=== PATIENT | male | born 1970 | race Caucasian/White ===

== ENCOUNTER 2019-11-10 22:33 | Inpatient (IN) | payer BC ==
[~2019-11-10] VITALS: Ht 185.4 cm; Wt 104.1 kg
--- NOTE | 2019-11-10 22:46 | NUR ---
PROMPTED PATIENT FOR URINE AT THIS TIME. PER PATIENT UNABLE TO PROVIDE SAMPLE AT THIS TIME.
[2019-11-10 22:50] VITALS: BP 148/87
--- NOTE | 2019-11-10 23:57 | NUR ---
PATIENT REFUSING PAIN MEDICATION AND NAUSEA MEDICATION AT THIS TIME, ALBERTA MARTINES AWARE.
[2019-11-11] VITALS (7 sets, daily range): BP systolic 97–154; BP diastolic 49–92
[2019-11-11] LABS: BASO # 0.1 10*3/uL (0.0-0.1); BASO % 0.3 % (0.0-1.0); EOS # 0.2 10*3/uL (0.0-0.4); EOS % 1.5 % (1.0-4.0); HEMATOCRIT 38.7 % (42.0-52.0); LYMPH # 2.2 10*3/uL (1.3-4.4); MEAN CORPUSCULAR HGB 31.2 pg (27.0-31.0); MEAN CORPUSCULAR HGB CONC 34.6 g/dl (33.0-37.0); MEAN PLATELET VOLUME 11.2 fl (9.6-12.3); MONO # 1.2 10*3/uL (0.1-1.0); MONO % 7.3 % (3.0-9.0); NEUT # 12.2 10*3/uL (2.3-7.9); NEUT % 76.3 % (47.0-73.0); PLATELET COUNT AUTOMATED 214 10*3/uL (130-400); RED CELL DISTRI WIDTH 12.2 % (0-14.5)
[2019-11-11 00:15] LABS: ALBUMIN 3.1 gm/dl (3.1-4.5); ALKALINE PHOSPHATASE 66 U/L (45-117); BUN 10 mg/dl (7-24); CHLORIDE 101 mmol/L (98-107); CREATININE 0.98 mg/dL (0.70-1.30); LIPASE 59 U/L (73-393); SGOT/AST 16 IU/L (3-35); SGPT/ALT 26 U/L (12-78); SODIUM 134 mmol/L (136-145); TOTAL PROTEIN 7.8 gm/dL (6.4-8.2)
[2019-11-11] MEDS ORDERED: ALLOPURINOL100 MG PO (02:43)
[2019-11-11] MEDS ORDERED: AUGMENTIN 875875 MG PO (02:43)
[2019-11-11] MEDS ORDERED: AMLODIPINE BESY10 MG PO (02:43)
[2019-11-11] MEDS ORDERED: HYDROCHLOROTHIA25 M1 PO (02:44)
[2019-11-11] MEDS ORDERED: ATENOLOL50 M1 PO (02:44)
[2019-11-11] MEDS ORDERED: IBU800 M1 PO (02:45)
--- NOTE | 2019-11-11 02:45 | NUR ---
MED REC UPDATED VIA CLAIM HISTORY.
--- NOTE | 2019-11-11 02:49 | NUR ---
NOTIIFIED OF MED REC REVIEW.
--- NOTE | 2019-11-11 03:09 | NUR ---
A 49, admitted to , under the services of TRENT Carney DO with a diagnosis of PERFORATED COLON. Chief complaint is ABDOMINAL PAIN. Patient arrived via ambulatory from ER. Monitor applied. Initial assessment completed. Vital signs taken and recorded. TRENT CARNEY DO notified of admission to the unit. Orders received. See assessment for past medical history, medications and allergies. Patient and/or family oriented to unit. [facility] visitation policy reviewed. Clothing/patient valuable form completed. VAZQUEZ MOLINA
[2019-11-11] MEDS ORDERED: FLONASE ALLERG9.9 ML NAS (03:26)
[2019-11-11] MEDS ORDERED: ALLEGRA-D 24 H1 EACH PO (03:26)
[2019-11-11] MEDS ORDERED: XANAX0.5 MG PO (03:33)
[2019-11-11 06:29] LABS: BASO % 0.3 % (0.0-1.0); EOS # 0.1 10*3/uL (0.0-0.4); HEMATOCRIT 36.9 % (42.0-52.0); LYMPH # 1.8 10*3/uL (1.3-4.4); LYMPH % 13.3 % (27.0-41.0); MEAN CELL VOLUME 90.4 fl (80.0-94.0); MEAN CORPUSCULAR HGB 30.9 pg (27.0-31.0); MEAN CORPUSCULAR HGB CONC 34.1 g/dl (33.0-37.0); MEAN PLATELET VOLUME 11.5 fl (9.6-12.3); MONO % 7.2 % (3.0-9.0); NEUT # 10.4 10*3/uL (2.3-7.9); NEUT % 77.5 % (47.0-73.0); PLATELET COUNT AUTOMATED 211 10*3/uL (130-400); RED BLOOD COUNT 4.08 10*6/uL (4.50-5.90); RED CELL DISTRI WIDTH 12.3 % (0-14.5); WHITE BLOOD COUNT 13.4 10*3/uL (4.8-10.8)
[2019-11-11 07:02] LABS: BUN 8 mg/dl (7-24); CHLORIDE 104 mmol/L (98-107); CHOLESTEROL 149 mg/dL (<200); CREATININE 0.89 mg/dL (0.70-1.30); HDL CHOLESTEROL 24 mg/dl (40-60); LDL CHOLESTEROL 103 mg/dL (9-159); POTASSIUM 3.2 mmol/L (3.5-5.1); SODIUM 136 mmol/L (136-145); TRIGLYCERIDES 112 mg/dl (<150); VLDL CHOLESTEROL 22 mg/dL (6-40)
--- NOTE | 2019-11-11 07:30 | NUR ---
IN PT ROOM AT THIS TIME. PT STATES THAT HIS ABDOMEN IS SEWER HAND BUT FEELS BETTER BECAUSE DR FRANKLIN WAS JUST IN THE ROOM AND STATES HE DOES NOT THINK SURGERY WILL BE NEEDED. CALL LIGHT WITHIN REACH, WILL CONTINUE TO MONITOR
--- NOTE | 2019-11-11 08:15 | NUR ---
DR FATIMA IN TO SEE PATIENT
--- NOTE | 2019-11-11 08:44 | NUR ---
DR NORIEGA UPDATED ON PT HOME MEDS NEEDING TO BE CONTINUED
--- NOTE | 2019-11-11 09:00 | NUR ---
Inspector Shells in to talk to patient. Patient states lives at home with . There are no steps in the home. Physician: rima castanon Pharmacy: [facility] health services: none Patient's level of ADLs: INDEPENDENT Patient has working utilities: all working DME: none Follow-up physician's appointment after d/c: will be made by hospitalist nurse director upon discharge Does patient want to access PORTAL?: no Discharge plan discussed with patient, he lives at home, is independent in adls and ambulation, works, drives, he states he will return home when medically stable and denies any home needs, case management will follow. AIMEE KOCH
--- NOTE | 2019-11-11 17:16 | NUR ---
SPOKE TO DR NORIEGA REGARDING PT BLOOD PRESSURE. HE STATES TO KEEP MONITORING HIM AND IF HE IS SYMPTOMATIC THEN TO GIVE HIM A CALL BACK
--- NOTE | 2019-11-11 20:23 | NUR ---
PT. RESTING IN BED. IVF CONTINUE ORDERED VIA RH, SITE ASYMPT. LUNGS DIMINISHED BILAT, PULSE OX97% ON RA. ABDOMEN SOFTLY DISTENDED AND NORMO, OBESE. 1-2+BLE EDEMA TO FEET NOTED. PT. DENIES ABD TENDERNESS OR PAIN. STEF BRASWELL RN
[2019-11-12] VITALS: BP 138/74
[2019-11-12 07:02] LABS: BUN 9 mg/dl (7-24); CHLORIDE 109 mmol/L (98-107); CREATININE 0.94 mg/dL (0.70-1.30); POTASSIUM 3.4 mmol/L (3.5-5.1); SODIUM 140 mmol/L (136-145)
[2019-11-12 07:04] LABS: BASO # 0.1 10*3/uL (0.0-0.1); BASO % 0.6 % (0.0-1.0); EOS # 0.4 10*3/uL (0.0-0.4); EOS % 3.9 % (1.0-4.0); HEMATOCRIT 38.2 % (42.0-52.0); LYMPH # 1.9 10*3/uL (1.3-4.4); LYMPH % 17.2 % (27.0-41.0); MEAN CELL VOLUME 92.5 fl (80.0-94.0); MEAN CORPUSCULAR HGB 30.3 pg (27.0-31.0); MEAN CORPUSCULAR HGB CONC 32.7 g/dl (33.0-37.0); MEAN PLATELET VOLUME 11.1 fl (9.6-12.3); MONO # 0.9 10*3/uL (0.1-1.0); MONO % 8.1 % (3.0-9.0); NEUT # 7.5 10*3/uL (2.3-7.9); NEUT % 69.6 % (47.0-73.0); PLATELET COUNT AUTOMATED 242 10*3/uL (130-400); RED BLOOD COUNT 4.13 10*6/uL (4.50-5.90); RED CELL DISTRI WIDTH 12.4 % (0-14.5); WHITE BLOOD COUNT 10.8 10*3/uL (4.8-10.8)
[2019-11-12 08:00] VITALS: BP 130/74
--- NOTE | 2019-11-12 08:15 | NUR ---
IN PT ROOM TO COMPLETE ASSESSMENT. WENT OVER DIET CHANGE WITH PATIENT AND PLANS FOR DECREASING FLUIDS. DC ACCOUNTS PAYABLE COORDINATOR AT THIS TIME. PT VOICES NO COMPLAINTS. CALL LIGHT WITHIN REACH, WILL CONTINUE TO MONITR. EXPLAINED HOW TO USE THE PHONE TO ORDER BREAKFAST
--- NOTE | 2019-11-12 09:00 | NUR ---
case management visits with patient, he will return home when medically stable and denies any home needs
[2019-11-12 12:00] VITALS: BP 138/72
[2019-11-12 16:00] VITALS: BP 117/71
--- NOTE | 2019-11-12 19:32 | NUR ---
Shift chart check completed.
[2019-11-12 20:00] VITALS: BP 149/77
[2019-11-13] VITALS: BP 130/81
[2019-11-13 06:07] LABS: BASO % 0.3 % (0.0-1.0); EOS # 0.5 10*3/uL (0.0-0.4); EOS % 3.7 % (1.0-4.0); HEMATOCRIT 37.8 % (42.0-52.0); LYMPH # 1.9 10*3/uL (1.3-4.4); LYMPH % 15.3 % (27.0-41.0); MEAN CELL VOLUME 92.2 fl (80.0-94.0); MEAN CORPUSCULAR HGB 30.2 pg (27.0-31.0); MEAN CORPUSCULAR HGB CONC 32.8 g/dl (33.0-37.0); MEAN PLATELET VOLUME 10.6 fl (9.6-12.3); MONO # 0.9 10*3/uL (0.1-1.0); MONO % 7.1 % (3.0-9.0); NEUT # 9.2 10*3/uL (2.3-7.9); PLATELET COUNT AUTOMATED 259 10*3/uL (130-400); RED CELL DISTRI WIDTH 12.6 % (0-14.5); WHITE BLOOD COUNT 12.5 10*3/uL (4.8-10.8)
[2019-11-13 06:22] LABS: BUN 6 mg/dl (7-24); CHLORIDE 107 mmol/L (98-107); CREATININE 0.95 mg/dL (0.70-1.30); POTASSIUM 3.4 mmol/L (3.5-5.1); SODIUM 138 mmol/L (136-145)
[2019-11-13 08:00] VITALS: BP 130/82
--- NOTE | 2019-11-13 08:34 | NUR ---
PATIENT SITTING UP IN CHAIR. NO DISTRESS NOTED. RESPIRATIONS EASY, REGULAR. DIET ADVANCED TO LOW FIBER. WILL SEE HOW PATIENT TOLERATES BREAKFAST. PT DENIES ANY ABD PAIN/DISCOMFORT. IVF MAINTAINED. VSS. CALL LIGHT WITHIN REACH.
--- NOTE | 2019-11-13 09:00 | NUR ---
case management visits with patient, he states he will return home when medically stable, patient is hopeful discharge will be within next couple of days, case management will follow
[2019-11-13 12:00] VITALS: BP 129/82
--- NOTE | 2019-11-13 12:00 | NUR ---
PT TOLERATING DIET WITHOUT ANY DIFFICULTY. NO DISTRESS NOTED. WILL CONTINUE TO MONITOR. VSS. CALL LIGHT WITHIN REACH.
[2019-11-13 16:00] VITALS: BP 129/76
[2019-11-13 20:00] VITALS: BP 129/69
--- NOTE | 2019-11-13 20:00 | NUR ---
UP IN ROOM. VOICES NO C/O AT THIS TIME. CALL LIGHT WITHIN REACH.
[2019-11-14] VITALS: BP 114/59
--- NOTE | 2019-11-14 | NUR ---
RESTING IN BED; VOICES NO C/O. CALL LIGHT WITHIN REACH.
--- NOTE | 2019-11-14 06:00 | NUR ---
VOICES NO C/O; CALL LIGHT WITHIN REACH.
[2019-11-14 06:36] LABS: BASO # 0.1 10*3/uL (0.0-0.1); BASO % 0.4 % (0.0-1.0); EOS # 0.5 10*3/uL (0.0-0.4); EOS % 3.2 % (1.0-4.0); HEMATOCRIT 40.4 % (42.0-52.0); LYMPH # 2.2 10*3/uL (1.3-4.4); LYMPH % 15.7 % (27.0-41.0); MEAN CELL VOLUME 91.6 fl (80.0-94.0); MEAN CORPUSCULAR HGB 30.4 pg (27.0-31.0); MEAN CORPUSCULAR HGB CONC 33.2 g/dl (33.0-37.0); MEAN PLATELET VOLUME 10.5 fl (9.6-12.3); MONO # 0.9 10*3/uL (0.1-1.0); MONO % 6.5 % (3.0-9.0); NEUT # 10.4 10*3/uL (2.3-7.9); NEUT % 73.3 % (47.0-73.0); PLATELET COUNT AUTOMATED 302 10*3/uL (130-400); RED BLOOD COUNT 4.41 10*6/uL (4.50-5.90); RED CELL DISTRI WIDTH 12.5 % (0-14.5); WHITE BLOOD COUNT 14.2 10*3/uL (4.8-10.8)
[2019-11-14 07:04] LABS: BUN 7 mg/dl (7-24); CHLORIDE 105 mmol/L (98-107); CREATININE 1.09 mg/dL (0.70-1.30); POTASSIUM 3.3 mmol/L (3.5-5.1); SODIUM 138 mmol/L (136-145)
--- NOTE | 2019-11-14 07:25 | NUR ---
CT PREP INITIATED AT THIS TIME PER ORDER.
--- NOTE | 2019-11-14 07:29 | NUR ---
IN TO SEE PATIENT THIS AM.
[2019-11-14 08:00] VITALS: BP 150/88
--- NOTE | 2019-11-14 09:00 | NUR ---
case management visits with patient, patient having more testing today. he will return home with no needs when discharged, case management will follow
--- NOTE | 2019-11-14 09:36 | NUR ---
PATIENT TAKEN DOWN FOR SCHEDULED CT.
[2019-11-14 12:00] VITALS: BP 101/68
--- NOTE | 2019-11-14 12:41 | NUR ---
THIS NURSE SPOKE WITH REGARDING CRITICAL CT RESULTS. PT TO BE TRANSFERRED PER . AND AWARE. OKAY FOR PATIENT TO HAVE HIS SCHEDULED PO MEDS WITH SIP OF WATER. PT TO REMAIN NPO.
--- NOTE | 2019-11-14 14:30 | NUR ---
IN TO SEE PATIENT.
[2019-11-14 16:00] VITALS: BP 120/55
--- NOTE | 2019-11-14 16:24 | NUR ---
TRANSFER PACKET COMPLETE AND SIGNED AT THIS TIME. AWAITING AMBULANCE PICK-UP.
--- NOTE | 2019-11-14 16:47 | NUR ---
AMBULANCE HERE TO TRANSPORT PATIENT TO .' PER ORDER.
--- NOTE | 2019-11-14 16:59 | NUR ---
NURSE TO NURSE REPORT GIVEN AT THIS TIME.
== END 2019-11-14 16:47 | disposition short-term general hospital (02) | DRG 872 ==
LOC: ED 22:33 → 4E 11-11 01:50
PROVIDERS: Internal Medicine; Physician Assistant; Student in an Organized Health Care Education/Training Program; ADMIT Internal Medicine
DX: A41.9 Sepsis, unspecified organism (principal); E44.1 Mild protein-calorie malnutrition; K57.20 Diverticulitis of large intestine with perforation and abscess without bleeding; E87.1 Hypo-osmolality and hyponatremia; K66.8 Other specified disorders of peritoneum; D64.9 Anemia, unspecified; E87.6 Hypokalemia; R73.9 Hyperglycemia, unspecified; E83.39 Other disorders of phosphorus metabolism; E83.41 Hypermagnesemia; R73.03 Prediabetes; I10 Essential (primary) hypertension; M10.9 Gout, unspecified; Z87.891 Personal history of nicotine dependence; Z82.49 Family history of ischemic heart disease and other diseases of the circulatory system; Z82.3 Family history of stroke; Z80.1 Family history of malignant neoplasm of trachea, bronchus and lung; Z79.899 Other long term (current) drug therapy; Z68.30 Body mass index [BMI] 30.0-30.9, adult

== ENCOUNTER → 2019-12-16 | Outpatient (CLI) | payer BC ==
[~2019-12-16] MED LIST: ALLEGRA-D 24 H1 EACH PO; ALLOPURINOL100 MG PO; AMLODIPINE BESY10 MG PO; ATENOLOL50 M1 PO; AUGMENTIN 875875 MG PO; FLONASE ALLERG9.9 ML NAS; HYDROCHLOROTHIA25 M1 PO; IBU800 M1 PO; XANAX0.5 MG PO
[2019-12-16 13:25] LABS: BASO # 0.1 10*3/uL (0.0-0.1); BASO % 0.4 % (0.0-1.0); EOS # 0.1 10*3/uL (0.0-0.4); EOS % 0.4 % (1.0-4.0); HEMATOCRIT 40.4 % (42.0-52.0); LYMPH # 2.1 10*3/uL (1.3-4.4); LYMPH % 14.9 % (27.0-41.0); MEAN CELL VOLUME 90.6 fl (80.0-94.0); MEAN CORPUSCULAR HGB 30.3 pg (27.0-31.0); MEAN CORPUSCULAR HGB CONC 33.4 g/dl (33.0-37.0); MEAN PLATELET VOLUME 11.7 fl (9.6-12.3); MONO % 7.1 % (3.0-9.0); NEUT # 10.6 10*3/uL (2.3-7.9); NEUT % 76.8 % (47.0-73.0); PLATELET COUNT AUTOMATED 224 10*3/uL (130-400); RED BLOOD COUNT 4.46 10*6/uL (4.50-5.90); RED CELL DISTRI WIDTH 13.6 % (0-14.5); WHITE BLOOD COUNT 13.8 10*3/uL (4.8-10.8)
[2019-12-16 13:37] LABS: ALBUMIN 4.3 gm/dl (3.1-4.5); ALKALINE PHOSPHATASE 60 U/L (45-117); BILIRUBIN, DIRECT 0.2 mg/dL (0.0-0.2); BUN 14 mg/dl (7-24); CHLORIDE 101 mmol/L (98-107); POTASSIUM 3.9 mmol/L (3.5-5.1); SGOT/AST 14 IU/L (3-35); SGPT/ALT 30 U/L (12-78); SODIUM 134 mmol/L (136-145); TOTAL PROTEIN 8.5 gm/dL (6.4-8.2)
== END | disposition home or self-care (01) ==
LOC: LAB 12:39
PROVIDERS: Specialist
DX: K57.20 Diverticulitis of large intestine with perforation and abscess without bleeding (principal); R50.9 Fever, unspecified

== ENCOUNTER → 2021-09-20 | Outpatient (CLI) | payer BC | END | disposition home or self-care (01) | LOC: CARD 09:30 | PROVIDERS: ATTEND Physician Assistant | DX: I08.0 Rheumatic disorders of both mitral and aortic valves (principal) ==

== ENCOUNTER 2024-07-04 09:00 | Inpatient (IN) | payer OTHER ==
[~2024-07-04] VITALS: Ht 185.4 cm; Wt 141.1 kg
[2024-07-04 09:05] VITALS: BP 135/88
[2024-07-04] MEDS ORDERED: MOUNJARO7.5 MG/0.1 SQ (09:09)
[2024-07-04] MEDS ORDERED: SODIUM CHLORIDE 0.9% 500 ML IV ONE (09:40)
[2024-07-04] MEDS ORDERED: IOHEXOL 300 MG/ML 100 ML VIAL IV ONE (09:40)
[2024-07-04 10:09] LABS: BASO # 0.1 10*3/uL (0.0-0.1); BASO % 0.3 % (0.0-1.0); HEMATOCRIT 43.5 % (42.0-52.0); MEAN CELL VOLUME 89.1 fl (80.0-94.0); MEAN CORPUSCULAR HGB 30.9 pg (27.0-31.0); MEAN CORPUSCULAR HGB CONC 34.7 g/dl (33.0-37.0); MEAN PLATELET VOLUME 10.7 fl (9.6-12.3); MONO # 1.5 10*3/uL (0.1-1.0); MONO % 6.5 % (3.0-9.0); NEUT # 19.9 10*3/uL (2.3-7.9); NEUT % 87.1 % (47.0-73.0); PLATELET COUNT AUTOMATED 219 10*3/uL (130-400); RED BLOOD COUNT 4.88 10*6/uL (4.50-5.90); RED CELL DISTRI WIDTH 13.2 % (0-14.5); WHITE BLOOD COUNT 22.8 10*3/uL (4.8-10.8)
[2024-07-04] MEDS ORDERED: MORPHINE Sulfate 2 MG/ML SYR IV ONE ×2 (10:25→17:40)
[2024-07-04] MEDS ORDERED: Ondansetron Hydrochloride 4 MG/2 ML VIAL IV ONE (10:35)
[2024-07-04] MEDS ORDERED: SODIUM CHLORIDE 0.9% 1,000 ML IV SCH ×2 (10:35→12:35)
[2024-07-04] MEDS ORDERED: Piperacillin Sodium/Tazobact 50 ML IV ONE (10:50)
[2024-07-04 11:30] LABS: ALKALINE PHOSPHATASE 49 U/L (46-116); BUN 15 mg/dl (9-23); CHLORIDE 104 mmol/L (98-107); LIPASE 38 U/L (12-53); POTASSIUM 3.8 mmol/L (3.4-5.1); SGPT/ALT 17 U/L (5-49); TOTAL PROTEIN 7.2 gm/dL (6.0-8.0)
[2024-07-04] MEDS ORDERED: HYDROmorphONE Hydrochloride 0.5 MG/0.5 ML SYRINGE IV ONE ×2 (11:30→12:35)
[2024-07-04 12:07] VITALS: BP 137/79
[2024-07-04] MEDS ORDERED: MORPHINE Sulfate 2 MG/ML SYR IV PRN ×2 (12:40→17:36)
[2024-07-04] MEDS ORDERED: ACETAMINOPHEN 650 MG SUPP R PRN (12:40)
[2024-07-04] MEDS ORDERED: fentaNYL CITRATE 100 MCG/2 ML VIAL IV ONE (12:50)
[2024-07-04 13:40] VITALS: BP 117/70
[2024-07-04] MEDS ORDERED: ACETAMINOPHEN 325 MG TAB PO PRN (14:20)
[2024-07-04] MEDS ORDERED: METFORMIN HYDR500 MG PO (14:57)
[2024-07-04] MEDS ORDERED: ALPRAZolam 0.5 MG TAB PO PRN (15:35)
[2024-07-04 16:00] VITALS: BP 114/67
[2024-07-04] MEDS ORDERED: Piperacillin Sodium/Tazobact 50 ML IV SCH (18:00)
[2024-07-04] MEDS ORDERED: HYDROmorphONE Hydrochloride 1 MG/ML SYR IV ONE (19:25)
[2024-07-04 19:36] VITALS: BP 124/77
[2024-07-05] VITALS: BP 134/87
[2024-07-05] MEDS ORDERED: IBUPROFEN 800 MG TAB PO ONE
[2024-07-05] MEDS ORDERED: Melatonin 5 MG TABLET PO SCH ×2 (00:25→22:00)
[2024-07-05 06:09] LABS: ALKALINE PHOSPHATASE 35 U/L (46-116); BUN 13 mg/dl (9-23); CHLORIDE 103 mmol/L (98-107); CHOLESTEROL 90 mg/dL (<200); LDL CHOLESTEROL 39 mg/dL (9-159); POTASSIUM 4.1 mmol/L (3.4-5.1); SGPT/ALT 16 U/L (5-49); TOTAL PROTEIN 6.1 gm/dL (6.0-8.0); TRIGLYCERIDES 58 mg/dl (<150)
[2024-07-05 06:19] LABS: BASO % 0.2 % (0.0-1.0); HEMATOCRIT 41.2 % (42.0-52.0); MEAN CELL VOLUME 91.6 fl (80.0-94.0); MEAN CORPUSCULAR HGB 30.2 pg (27.0-31.0); MONO # 0.7 10*3/uL (0.1-1.0); MONO % 5.2 % (3.0-9.0); NEUT # 11.1 10*3/uL (2.3-7.9); NEUT % 87.2 % (47.0-73.0); PLATELET COUNT AUTOMATED 193 10*3/uL (130-400); RED CELL DISTRI WIDTH 13.3 % (0-14.5); WHITE BLOOD COUNT 12.7 10*3/uL (4.8-10.8)
[2024-07-05 08:00] VITALS: BP 106/74
[2024-07-05] MEDS ORDERED: METRONIDAZOLE 100 ML IV SCH (08:00)
[2024-07-05 08:05] LABS: VITAMIN D, 25-HYDROXY 37.5 ng/mL (30-100)
[2024-07-05] MEDS ORDERED: SODIUM CHLORIDE 0.9% 1,000 ML IV SCH (09:20)
[2024-07-05] MEDS ORDERED: MAGNESIUM SULFATE 50 ML IV ONE (09:30)
[2024-07-05] MEDS ORDERED: DEXTROSE 10 % IN WATER 250 ML IV PRN (09:40)
[2024-07-05] MEDS ORDERED: IBUPROFEN 800 MG TAB PO PRN (10:15)
[2024-07-05] MEDS ORDERED: INSULIN LISPRO 1 UNIT/0.01 ML SQ SCH ×2 (11:30→18:00)
[2024-07-05 12:00] VITALS: BP 137/83
[2024-07-05] MEDS ORDERED: IOHEXOL 300 MG/ML 100 ML VIAL IV ONE (13:40)
[2024-07-05] MEDS ORDERED: IOHEXOL 9 MG/ML (IODINE) ORAL SOLUTION PO ONE (13:45)
[2024-07-05 16:00] VITALS: BP 132/69
[2024-07-05 19:58] VITALS: BP 94/64
[2024-07-05 20:12] VITALS: BP 107/74
[2024-07-05] MEDS ORDERED: ACETAMINOPHEN 100 ML IV ONE (21:28)
== END 2024-07-05 23:10 | disposition left against medical advice (07) | DRG 872 ==
LOC: ED 09:00 → ICCU 11:52 → EDHOLD 11:52 → ICCU 14:14
PROVIDERS: Internal Medicine; Registered Nurse; ADMIT Internal Medicine; ATTEND Internal Medicine
DX: A41.51 Sepsis due to Escherichia coli [E. coli] (principal); K57.32 Diverticulitis of large intestine without perforation or abscess without bleeding; E44.0 Moderate protein-calorie malnutrition; Z68.41 Body mass index [BMI] 40.0-44.9, adult; I10 Essential (primary) hypertension; R65.20 Severe sepsis without septic shock; M10.9 Gout, unspecified; E11.42 Type 2 diabetes mellitus with diabetic polyneuropathy; Z53.29 Procedure and treatment not carried out because of patient's decision for other reasons; Z82.49 Family history of ischemic heart disease and other diseases of the circulatory system; Z80.1 Family history of malignant neoplasm of trachea, bronchus and lung